=== PATIENT | female | born 1950 | race Caucasian/White ===

== ENCOUNTER 2019-06-02 09:36 | Outpatient (CLI) | payer MEDICARE, SELFPAY ==
--- NOTE | 2019-06-03 13:23 | WPDSIXMINUTE ---
Six Minute Walk Six Minute Walk: The patients O2 sats started at 95% on RA and dropped as low as 90% Total walk distance was 137.16 meters conclusion: This patient does not qualify for home oxygen therapy.
--- NOTE | 2019-06-06 12:53 | WPDSIXMINUTE ---
Six Minute Walk Six Minute Walk: The patients O2 sats started at 95% on RA and dropped as low as 90% on RA Total walk distance 137.16 meters conclusion: This patient would not benefit from home oxygen therapy.
--- NOTE | 2019-06-09 20:59 | P.PCNSIX_ITS ---
Six Minute Walk DATE OF SERVICE: 06/02/2019 REQUESTING PHYSICIAN: Ryan Parker MD REASON FOR TESTING: Exertional dyspnea SIX MINUTE WALK This test was conducted per ATS guidelines. On room air, initial saturation was 95% and pulse was 80. Saturation dropped to 89% transiently, and returned to 95% at the end of recovery. Distance walked was 450 feet / 137 meters. The pa tient stopped twice to rest for a total of 30 seconds. IMPRESSION: Mild desaturation without katja hypoxemia. Distance walked is less than expected for age. Nancy Lewis MD
== END 2019-06-02 09:37 | disposition home or self-care (01) ==
PROVIDERS: PCP Internal Medicine; Visit Provider Internal Medicine
DX: J44.9 Chronic obstructive pulmonary disease, unspecified (principal)
CPT/HCPCS: 99199